=== PATIENT | male | born 2000 | race Caucasian/White ===

== ENCOUNTER 2021-10-29 08:01 | Day surgery (SDC) | payer OTHER ==
[~2021-10-29] VITALS: Ht 167.6 cm; Wt 63.4 kg
[~2021-10-29 08:01] MED LIST: FLONASE ALLERG9.9 ML NAS; MELATONIN 5 MG1 EAC1 PO; MINIPRESS2 MG PO; MIRTAZAPINE7.5 MG PO; VENTOLIN HFA18 GM PO
--- NOTE | 2021-10-29 08:52 | NUR ---
HIGH FUCTIONING BUT PARENTS DO ANSWER SOME QUESTIONS. 0851 VERSED GIVEN. RAILS UP.
--- NOTE | 2021-10-29 09:33 | NUR ---
parents adamant to have iv placed in or. it security analyst and have talked with them. pt somewhat sleepy with oral versed but still not sedated enough. mother now says that medicine hasnt ever worked on him. she never informed any staff of this today before it was given also discussed medicine with her before it was given.
--- NOTE | 2021-10-29 10:54 | NUR ---
10/29/21 1054 Sharri Garner 1049 PATIENT ARRIVES TO PACU UNRESPONSIVE TO PAIN. ORAL AIRWAY IN PLACE. RESP EVEN AND UNLABORED, MASK AT 10 LITERS DECREASED TO 6 LITERS.
--- NOTE | 2021-10-29 12:08 | NUR ---
WATCHING PHONE. DECLINES EATING HAS BEEN DRINKING WATER.
== END 2021-10-29 12:15 | disposition home or self-care (01) ==
LOC: OPS 08:01 → DS 08:01 → OPS 09:00
PROVIDERS: ATTEND Dentist General Practice
DX: K05.329 Chronic periodontitis, generalized, unspecified severity (principal); M26.4 Malocclusion, unspecified; F41.1 Generalized anxiety disorder; G93.1 Anoxic brain damage, not elsewhere classified; Z01.21 Encounter for dental examination and cleaning with abnormal findings; Z88.1 Allergy status to other antibiotic agents; R62.50 Unspecified lack of expected normal physiological development in childhood
CPT/HCPCS: 00170; 80048; 85025; J0330; J1100; J1885; J2250; J2405; J2704; J2765; J3010; J7121